=== PATIENT | female | born 1965 | race Caucasian/White ===

== ENCOUNTER 2016-12-31 08:46 | Emergency (ER) | payer OTHER ==
[~2016-12-31] VITALS: Ht 157.5 cm; Wt 87.7 kg
[2016-12-31] MEDS ORDERED: MEDROXYPRO150 MG/1 M IM (10:24)
[2016-12-31] MEDS ORDERED: SERTRALINE HCL100 MG PO (10:25)
[2016-12-31] MEDS ORDERED: CYANOCOBALAM1000 MCG PO (10:26)
[2016-12-31] MEDS ORDERED: BUPROPION XL300 MG PO (10:26)
[2016-12-31] MEDS ORDERED: VITAMIN D-32000 UNI2 PO (10:27)
[2016-12-31] MEDS ORDERED: LEVOTHYROXINE112 MCG PO (10:27)
[2016-12-31] MEDS ORDERED: WARFARIN SODIUM5 MG PO (10:28)
[2016-12-31] MEDS ORDERED: LEVOTHYROXINE100 MCG PO (10:28)
[2016-12-31] MEDS ORDERED: WARFARIN SODIUM1 MG PO (10:29)
[2016-12-31] MEDS ORDERED: DESYREL100 MG PO (10:31)
[2016-12-31] MEDS ORDERED: ALPRAZOLAM1 MG PO (10:31)
[2016-12-31] MEDS ORDERED: FERROUS SULFAT325 MG PO (10:32)
[2016-12-31 11:02] LABS: EOSINOPHIL (%) 0.8 % (0-5); EOSINOPHIL COUNT 0.1 K/uL (0-0.3); HEMATOCRIT 35.5 % (36.0-46.0); IMMATURE GRANULOCYTE (%) 0.5 % (0.0-0.7); INSTRUMENT ABS NEUTROPHIL CT 7.1 K/uL; LYMPHOCYTE COUNT 0.6 K/uL (1.0-2.8); MCHC 32.7 G/DL (30.0-36.0); MCV 88.8 FL (83-99); MONOCYTE (%) 6.2 % (3-12); MONOCYTE COUNT 0.5 K/uL (0-0.8); NEUTROPHIL (%) 85.4 % (45-76); NEUTROPHIL COUNT 7.1 K/uL (1.8-6.4); PLATELET COUNT 254 K/uL (156-360); RBC DIS.WIDTH-CV 14.4 % (11.8-14.6); RBC DIS.WIDTH-SD 46.7 % (39-53); WHITE BLOOD COUNT 8.3 K/uL (4.1-10.2)
[2016-12-31 11:12] LABS: INTER. NORMALIZED RATIO 1.7; PROTHROMBIN TIME 18.1 (9.2-11.2); PTT 35.5 (25-32)
[2016-12-31 11:28] LABS: ANION GAP 8 MEQ/L (2-14); CHLORIDE 106 MEQ/L (99-109); GFR ESTIMATE (CALCULATED) > 59 mL/min/; GLUCOSE 104 mg/dL (70-99); POTASSIUM 3.9 MEQ/L (3.7-5.4); SAMPLE HEMOLYSIS CHECK 0; SAMPLE ICTERIC CHECK 0; SAMPLE LIPEMIA CHECK 0; SODIUM 137 MEQ/L (136-147); UREA NITROGEN (BUN) 14 mg/dL (9-23)
[2016-12-31 18:00] VITALS: BP 131/95
== END 2016-12-31 18:29 | disposition short-term general hospital (02) ==
LOC: EME → TRA 08:46 → EDBD 08:46 → TRA 18:29
PROVIDERS: Emergency Medicine
DX: S82.392A Other fracture of lower end of left tibia, initial encounter for closed fracture (principal); S82.832A Other fracture of upper and lower end of left fibula, initial encounter for closed fracture; W17.89XA Other fall from one level to another, initial encounter; Y92.008 Other place in unspecified non-institutional (private) residence as the place of occurrence of the external cause; F17.200 Nicotine dependence, unspecified, uncomplicated
CPT/HCPCS: 70450; 73600; 73610; 80048; 85025; 85610; 85730; 86900; 86901; 99281; 99285; J2270; J3010; J7030